=== PATIENT | female | born 1980 | race Caucasian/White ===

== ENCOUNTER → 2016-03-27 | Outpatient (CLI) | payer OTHER ==
--- NOTE | 2016-03-27 10:29 | US ---
March 27, 2016 Dear Ms. Shanae Atkinson, Thank you for requesting consultation and a follow up ultrasound for your patient, Mrs. Oneal jaffe. As you know, Abbey is a 35 year old G 2, P 1001 . Her due date is 06/15/16 by first trimest er ultrasound. Her current gestational age based on this dating is is 28 weeks 4 days. She is seen today for a follow up assessment of growth and placenta location. She denies bleeding or lab or symptoms. She currently has a head cold. ULTRASOUND Number of fetuses: 1 Placental location: Posterior; resolution of low lying status with the lowest edge approximately 4.7 cm away from the internal cervical os. Color and spectral Doppler do not reveal any overlying vessels. presentation: Cephalic Heart Rate: 149 bpm Cervix: 4.9 cm viewed transvaginally Maximum Vertical Pocket: 6.3 cm Measurements: Biparietal diameter: 70 mm 28 weeks, 0 days Head circumference: 274 mm 30 weeks, 0 days Abdominal circumference: 243 mm 28 weeks, 4 days Femur length: 53 mm 28 weeks, 2 days Humerus length: 48 mm 28 weeks, 0 days Transcerebellar diameter: 37 mm 30 weeks, 2 days Average age by ultrasound: 28 weeks, 5 days Estimated weight: 1239 gm weight percentile: 35 % ANATOMY anatomy was previously assessed. Today the following structures were visualized and appeared n ormal: Lateral ventricle, cavum septum pellucidum, cerebellum, four-chamber view of the heart, left ventricular outflow tract, right ventricular outflow tract, limited views of the aortic arch, S VC/IVC views, stomach, bladder, bilateral kidneys, and views of the lip and nose area. IMPRESSION: 1. Intrauterine at 28 weeks, 4 days; [facility] of 06/15/16. 2. growth is appropriate size for dates. 3. anatomy was previously assessed and today's ultrasound continues to provide reassurance of normal appearing anatomy. 4. Normal amniotic fluid volume 5. Posterior placenta with resolution of low lying RECOMMENDATIONS: I was pleased to review today's ultrasound with your patient. I reassured her that growth is normal at the 35 %ile for this gestational age. The amniotic fluid volume is normal. We performed a review of the anatomy which was limited by gestational age and position, but no overt abnormali ties were noted. A transvaginal ultrasound was performed to better evaluate the cervix and the placenta. The placenta has resolved for low lying with the lowest edge now 4.7 cm from the os. There are no overlying feta l vessels by Doppler evaluation. The cervical length is also normal. Future ultrasound and consultation is available at your discretion. Thank you for allowing us the opportunity to evaluate your patient. Should you have any further ques tions or concerns please do not hesitate to contact me. Approximately 15 minutes were spent with the patient and 10 minutes were spent in face to face consu ltation. Aleida Restrepo MD [employer] Maternal Medicine Diagnosis Department of Obstetrics & Gynecology [facility]
--- NOTE | 2016-03-27 11:32 | US ---
OB sonogram History: Check growth, low-lying placenta, EDC June 15, 2016, 28 weeks 4 days Technique: Transabdominal and transvaginal scanning. Transvaginal scanning is performed to better charla luate the cervix and low-lying placenta. Comparison: January 23, 2016 Findings: The fetus is in vertex presentation. heart rate = 149 bpm. The cervix is closed measu ring 3.5 cm transabdominally and 4.9 cm transabdominally. There is no funneling of the internal os. T he placenta is posterior and no longer low-lying. Transvaginal exam reveals that the lower margin of the placenta is 4.9 cm above the internal os (previously 2 cm). Maximum amniotic fluid pocket = 6.3 c m. The visualized intracranial contents, face and spine look normal. The heart i s 4 chambered with a normal right and left ventricular outflow tract. Fluid is identified in the feta l stomach and urinary bladder. The renal region looks normal. The umbilical cord has 3 ve ssels and a normal insertion site. 4 extremities are present. BPD = 70 mm = 28 weeks 0 days Head circumference = 274 mm = 30 weeks 0 days Abdominal circumference = 243 mm = 28 weeks 4 days Femur length = 53 mm = 28 weeks 2 days Humeral length = 48 mm = 28 weeks 0 days Cerebellar width = 37 mm = 30 weeks 2 days Cisterna magna = 5.4 mm Estimated weight = 1239 gm = 35 percentile Average gestational age by ultrasound = 28 weeks 5 days Ultrasound [facility] June 14, 2016 Impression: 1. Size consistent with dates. There is been normal interval growth since January 22. 2. Normal anatomy. 3. Superior migration of the placenta, which is no longer low-lying. This report should be read in conjunction with a consultation by Dr. Agustina Atkinson.
== END ==
LOC: FIMAGING 09:27
PROVIDERS: ATTEND Midwife
DX: O44.43 Low lying placenta NOS or without hemorrhage, third trimester (principal); Z3A.28 28 weeks gestation of pregnancy